=== PATIENT | female | born 1985 | race Caucasian/White ===

== ENCOUNTER 2022-08-27 17:00 | Day surgery (SDC) | payer BC ==
[2022-08-27 17:38] VITALS: BMI 29.7
[2022-08-27] MEDS ORDERED: hydrALAZINE 20 MG/ML VIAL SLOW IVP PRN (18:10)
[2022-08-27] MEDS ORDERED: Acetaminophen 500 MG TAB PO PRN (18:12)
[2022-08-27 19:43] LABS: #Basophils 0.1 10x3/uL (0.0-0.2); #Eosinphils 0.2 10x3/uL (0.0-0.5); #Monocytes 0.8 10x3/uL (0.0-1.1); #Neutrophils 7.2 10x3/uL (1.5-8.4); %Basophils 0.8 % (0.0-2.0); %Eosinophils 1.8 % (0.0-6.0); %Lymphocytes 25.6 % (18.0-47.0); %Monocytes 6.8 % (0.0-10.0); %Neutrophils 63.4 % (40.0-75.0); Hemoglobin 13.3 g/dL (12.0-15.5); Mean Corpuscular HGB CONC 35.5 g/dL (32.0-36.0); Mean Corpuscular Hemoglobin 32.6 pg (27.0-33.0); Mean Corpuscular Volume 91.9 fl (81.6-98.3); Mean Platelet Volume 10.4 fl (7.4-10.4); Platelet Count 245 10x3/uL (150-450); RBC Distribution Width 13.2 % (11.5-14.5); Red Blood Cell (RBC) Count 4.08 10x6/uL (3.90-5.03); White Blood Cell (WBC) Count 11.3 10x3/uL (3.5-10.5)
[2022-08-27 19:49] LABS: ALT (SGPT) 17 U/L (8-55); AST (SGOT) 17 U/L (5-34); Albumin 3.3 g/dL (3.5-5.0); Alkaline Phosphatase 78 U/L (40-110); Anion Gap 12 mmol/L (10-20); BUN (Urea Nitrogen) 8 mg/dL (7.0-18.7); Bilirubin, Total 0.4 mg/dL (0.2-1.2); Calc. Creatinine Clearance 154 mL/min (70-130); Calcium 8.6 mg/dL (7.8-10.44); Carbon Dioxide 22 mmol/L (22-29); Chloride 107 mmol/L (98-107); Estimated GFR 117; Globulin 2.8 g/dL (2.4-3.5); Glucose 82 mg/dL (70-105); Potassium 3.6 mmol/L (3.5-5.1); Protein, Total 6.1 g/dL (6.0-8.3); Sodium 137 mmol/L (136-145)
== END 2022-08-27 19:32 | disposition home or self-care (01) ==
LOC: CSHLD/OP 17:00
PROVIDERS: ATTEND Advanced Practice Midwife
DX: O99.891 Other specified diseases and conditions complicating pregnancy (principal); R03.0 Elevated blood-pressure reading, without diagnosis of hypertension; Z3A.27 27 weeks gestation of pregnancy
CPT/HCPCS: 36415; 80053; 81003; 82570; 85025; 99283

== ENCOUNTER 2022-11-10 09:56 | Inpatient (IN) | payer BC, SELFPAY ==
[2022-11-10] MEDS ORDERED: hydrALAZINE 20 MG/ML VIAL SLOW IVP PRN ×4 (10:30→17:13)
[2022-11-10 12:13] LABS: ALT (SGPT) 30 U/L (8-55); Albumin 3.1 g/dL (3.5-5.0); Alkaline Phosphatase 227 U/L (40-110); Anion Gap 14 mmol/L (10-20); BUN (Urea Nitrogen) 9 mg/dL (7.0-18.7); Bilirubin, Total 0.4 mg/dL (0.2-1.2); Calc. Creatinine Clearance 0 mL/min (70-130); Calcium 8.2 mg/dL (7.8-10.44); Carbon Dioxide 19 mmol/L (22-29); Chloride 108 mmol/L (98-107); Estimated GFR 100; Globulin 2.9 g/dL (2.4-3.5); Glucose 85 mg/dL (70-105); Potassium 4.3 mmol/L (3.5-5.1); Sodium 137 mmol/L (136-145)
[2022-11-10 12:17] LABS: Hemoglobin 13.4 g/dL (12.0-15.5); Mean Corpuscular HGB CONC 35.4 g/dL (32.0-36.0); Mean Corpuscular Hemoglobin 31.9 pg (27.0-33.0); Platelet Count 221 10x3/uL (150-450); RBC Distribution Width 13.3 % (11.5-14.5); White Blood Cell (WBC) Count 10.6 10x3/uL (3.5-10.5)
[2022-11-10 12:18] LABS: #Basophils 0.1 10x3/uL (0.0-0.2); #Eosinphils 0.1 10x3/uL (0.0-0.5); #Monocytes 0.5 10x3/uL (0.0-1.1); #Neutrophils 8.2 10x3/uL (1.5-8.4); %Basophils 0.6 % (0.0-2.0); %Eosinophils 0.6 % (0.0-6.0); %Lymphocytes 15.7 % (18.0-47.0); %Monocytes 4.8 % (0.0-10.0); %Neutrophils 76.7 % (40.0-75.0)
[2022-11-10 12:21] LABS: AST (SGOT) 39 U/L (5-34)
[2022-11-10 14:00] LABS: Creatinine, Urine 205.43 mg/dL (47-110)
[2022-11-10] MEDS ORDERED: Butorphanol Tartrate 1 MG/ML VIAL SLOW IVP PRN (17:10)
[2022-11-10] MEDS ORDERED: Ondansetron PF 4 MG/2 ML Vial IVP PRN (17:10)
[2022-11-10] MEDS ORDERED: Lidocaine 1% (PF) 30 ML VIAL SC PRN (17:10)
[2022-11-10] MEDS ORDERED: Promethazine HCl 25 MG/ML VIAL IM PRN (17:10)
[2022-11-10] MEDS ORDERED: Ibuprofen 800 MG TAB PO PRN (17:11)
[2022-11-10] MEDS ORDERED: HYDROcodone/Acetaminophen 5/325 mg Tablet PO PRN ×2 (17:11)
[2022-11-10] MEDS ORDERED: Labetalol HCl 100 MG/20 ML VIAL SLOW IVP PRN ×2 (17:13)
[2022-11-10] MEDS ORDERED: Calcium Gluc 4.6 MEQ/10 ML (100 MG/ML) SLOW IVP PRN (17:13)
[2022-11-10] MEDS ORDERED: Lorazepam 2 MG/ML VIAL SLOW IVP PRN (17:13)
[2022-11-10] MEDS ORDERED: Penicillin G Potassium 5 MILL.UNITS in Sodium Chloride 0.9% 100 ML IVPB SCH (17:15)
[2022-11-10] MEDS ORDERED: NS w/ Oxytocin 30 units 500 ML IV SCH ×2 (17:15)
[2022-11-10] MEDS ORDERED: Lactated Ringer's 1,000 ML IV SCH (17:15)
[2022-11-10 18:56] LABS: SARS-CoV-2 NAA Rapid Test Not Detected (NotDetected)
[2022-11-10 19:22] VITALS: BMI 33.1
[2022-11-10] MEDS ORDERED: Penicillin G 2.5 MILL.units 2.5 MILL.UNITS in Premix Bag 1 BAG IVPB SCH (21:15)
[2022-11-10 23:24] LABS: Hemoglobin 11.7 g/dL (12.0-15.5); Mean Corpuscular HGB CONC 34.9 g/dL (32.0-36.0); Mean Corpuscular Hemoglobin 31.5 pg (27.0-33.0); Mean Corpuscular Volume 90.3 fl (81.6-98.3); Mean Platelet Volume 11.5 fl (7.4-10.4); Platelet Count 184 10x3/uL (150-450); RBC Distribution Width 13.3 % (11.5-14.5); Red Blood Cell (RBC) Count 3.71 10x6/uL (3.90-5.03)
[2022-11-10 23:24] LABS: Syphilis Antibody Nonreactive (Nonreactive); Syphilis Antibody Index 0.04 S/CO (<1.00 Non-Reactive)
[2022-11-10 23:25] LABS: HBSAg Index 0.18 S/CO (0-0.99); Hep B Surf Ag Non-Reactive S/CO (NonReactive)
[2022-11-10] MEDS ORDERED: Penicillin G Potassium 5 MILL.UNITS VIAL ONE (23:50)
[2022-11-11] MEDS ORDERED: Bupivacaine/Epinephrine 0.25% 30 ML VIAL ONE (08:00)
[2022-11-11] MEDS ORDERED: Fentanyl 2 mcg/Bup 0.1% Cadd 100 ML ONE (10:59)
[2022-11-11] MEDS ORDERED: Carboprost 250 MCG/ML AMP ONE (12:35)
[2022-11-11] MEDS ORDERED: Tranexamic Acid 1,000 MG/10 ML VIAL ONE (12:35)
[2022-11-11] MEDS ORDERED: Misoprostol 200 MCG TAB ONE (12:35)
[2022-11-11] MEDS ORDERED: Azithromycin 500 MG VIAL ONE (12:51)
[2022-11-11] MEDS ORDERED: Lidocaine 2% MPF 10 ML AMP (For Epidural Use) ONE (12:56)
[2022-11-11] MEDS ORDERED: PHENYLEPHRINE-NS 100 MCG/ML 10 ML SYRINGE ONE (12:56)
[2022-11-11] MEDS ORDERED: ePHEDrine Sulfate 50 MG/10 ML VIAL ONE (12:57)
[2022-11-11] MEDS ORDERED: Oxytocin 10 UNITS/ML VIAL ONE (13:02)
[2022-11-11] MEDS ORDERED: Midazolam HCl 2 mg/2 ml Vial ONE (13:03)
[2022-11-11] MEDS ORDERED: Morphine PF 10 MG/10 ML VIAL ONE (13:09)
[2022-11-11] MEDS ORDERED: Fentanyl 100 MCG/2 ML VIAL ONE (13:10)
[2022-11-11] MEDS ORDERED: Labetalol HCl 100 MG/20 ML VIAL ONE (13:18)
[2022-11-11 13:26] LABS: pH (Cord, venous) 7.222 (7.250-7.350)
[2022-11-11] MEDS ORDERED: Ondansetron PF 4 MG/2 ML Vial ONE (13:27)
[2022-11-11] MEDS ORDERED: Ketorolac Tromethamine 30 MG/ML VIAL ONE (13:30)
[2022-11-11] MEDS ORDERED: diphenhydrAMINE 50 MG/ML VIAL IVP PRN ×2 (14:08)
[2022-11-11] MEDS ORDERED: ePHEDrine Sulfate 50 MG/10 ML VIAL SLOW IVP PRN (14:08)
[2022-11-11] MEDS ORDERED: Naloxone HCl 0.4 mg/ml Vial IVP PRN ×4 (14:08)
[2022-11-11] MEDS ORDERED: Ondansetron PF 4 MG/2 ML Vial IVP PRN ×3 (14:08→16:54)
[2022-11-11] MEDS ORDERED: Lactated Ringer's 500 ML IV PRN (14:08)
[2022-11-11] MEDS ORDERED: Promethazine HCl 25 MG/ML VIAL IM PRN ×3 (14:08→16:54)
[2022-11-11] MEDS ORDERED: Moisturizing Cream (Eucerin) 113 GM JAR TOP PRN ×2 (14:08)
[2022-11-11] MEDS ORDERED: Acetaminophen 325 MG TAB PO PRN ×2 (14:08→16:54)
[2022-11-11] MEDS ORDERED: Promethazine HCl 25 MG SUPP PR PRN (14:08)
[2022-11-11] MEDS ORDERED: Naloxone HCl 0.4 mg/ml Vial IV PRN (14:08)
[2022-11-11] MEDS ORDERED: Communication Order-Pharmacy FS SCH ×2 (14:15)
[2022-11-11] MEDS ORDERED: Fentanyl 2 mcg/Bupivacaine 0.1% Cassette 100 ML EPIDURAL SCH (14:15)
[2022-11-11 14:31] LABS: Hemoglobin 12.8 g/dL (12.0-15.5); Platelet Count 178 10x3/uL (150-450)
[2022-11-11] MEDS ORDERED: Azithromycin 500 MG in Sodium Chloride 0.9% 250 ML 250 ML IVPB SCH (15:15)
[2022-11-11] MEDS ORDERED: Lanolin Ointment 7 GM TUBE TOP PRN (16:54)
[2022-11-11] MEDS ORDERED: Simethicone Chewable 80 MG TAB PO PRN (16:54)
[2022-11-11] MEDS ORDERED: Methylergonovine 0.2 MG/ML VIAL IM PRN (16:54)
[2022-11-11] MEDS ORDERED: Misoprostol 200 MCG TAB PR PRN (16:54)
[2022-11-11] MEDS ORDERED: Boostrix 0.5 ML (Tdap) VIAL (>/=7 yrs of age) IM ONE (16:54)
[2022-11-11] MEDS ORDERED: NS w/ Oxytocin 30 units 500 ML IV SCH (16:54)
[2022-11-11] MEDS ORDERED: diphenhydrAMINE 25 MG CAP PO PRN (16:54)
[2022-11-11] MEDS ORDERED: hydrALAZINE 20 MG/ML VIAL SLOW IVP PRN (16:54)
[2022-11-11] MEDS: Ketorolac Tromethamine 30 MG/ML VIAL IVP SCH (20:22)
[2022-11-11] MEDS: Docusate 100 MG CAP PO SCH (20:22)
[2022-11-11] MEDS: Ferrous Sulfate 325 MG TAB PO SCH (21:29)
[2022-11-12] MEDS: Ketorolac Tromethamine 30 MG/ML VIAL IVP SCH ×3 (02:06→14:16)
[2022-11-12 04:46] LABS: Hemoglobin 10.4 g/dL (12.0-15.5); Mean Corpuscular HGB CONC 35.3 g/dL (32.0-36.0); Mean Corpuscular Hemoglobin 32.1 pg (27.0-33.0); Mean Platelet Volume 11.3 fl (7.4-10.4); Platelet Count 167 10x3/uL (150-450); RBC Distribution Width 13.3 % (11.5-14.5); Red Blood Cell (RBC) Count 3.24 10x6/uL (3.90-5.03); White Blood Cell (WBC) Count 11.5 10x3/uL (3.5-10.5)
[2022-11-12] MEDS: Prenatal Vitamin 1 TAB PO SCH (07:50)
[2022-11-12] MEDS: Ferrous Sulfate 325 MG TAB PO SCH ×3 (07:50→21:07)
[2022-11-12] MEDS: Docusate 100 MG CAP PO SCH (21:07)
[2022-11-12] MEDS: Ibuprofen 800 MG TAB PO SCH (21:07)
[2022-11-13] MEDS: Ibuprofen 800 MG TAB PO SCH (04:59)
[2022-11-13] MEDS: Ketorolac Tromethamine 30 MG/ML VIAL IVP SCH (08:07)
[2022-11-13] MEDS: Docusate 100 MG CAP PO SCH ×2 (08:08→08:30)
[2022-11-13] MEDS: Ferrous Sulfate 325 MG TAB PO SCH (08:09)
[2022-11-13] MEDS: Prenatal Vitamin 1 TAB PO SCH (08:30)
[2022-11-13 08:36] VITALS: BP 124/84; TEMP 98.3
== END 2022-11-13 10:40 | disposition home or self-care (01) | DRG 788 ==
LOC: CSHLD/OP 09:56 → CSHERS 09:56 → CSHLD 14:55 → CSHPP 11-11 16:30
PROVIDERS: ADMIT Obstetrics & Gynecology; ATTEND Obstetrics & Gynecology
PROC: 10907ZC Drainage of Amniotic Fluid, Therapeutic from Products of Conception, Via Natural or Artificial Opening (ICD-10-PCS; principal; 2022-11-11)
PROC: 10D00Z1 Extraction of Products of Conception, Low, Open Approach (ICD-10-PCS; 2022-11-11)
PROC: 10H07YZ Insertion of Other Device into Products of Conception, Via Natural or Artificial Opening (ICD-10-PCS; 2022-11-11)
DX: O14.94 Unspecified pre-eclampsia, complicating childbirth (principal); O76 Abnormality in fetal heart rate and rhythm complicating labor and delivery; O45.93 Premature separation of placenta, unspecified, third trimester; Z3A.38 38 weeks gestation of pregnancy; Z37.0 Single live birth; Z20.822 Contact with and (suspected) exposure to COVID-19; Z79.82 Long term (current) use of aspirin; O66.5 Attempted application of vacuum extractor and forceps; O69.2XX0 Labor and delivery complicated by other cord entanglement, with compression, not applicable or unspecified
CPT/HCPCS: 36415; 51702; 80053; 82570; 82805; 84156; 85014; 85018; 85025; 85027; 85049; 86780; 86850; 86900; 86901; 87340; 88307; 99285; J1200; J1885; J2250; J2274; J2405; J2540; J2590; J3010; J3490; J7120; U0002

== ENCOUNTER 2025-08-05 14:19 | Outpatient (CLI) | payer BC, OTHER | END 2025-08-05 14:20 | disposition home or self-care (01) | LOC: CSHMAMMO 14:19 | PROVIDERS: ATTEND Internal Medicine | DX: N63.12 Unspecified lump in the right breast, upper inner quadrant (principal); N63.15 Unspecified lump in the right breast, overlapping quadrants | CPT/HCPCS: G0279 ==